=== PATIENT | female | born 1980 | race African-American/Black ===

== ENCOUNTER 2024-08-26 23:36 | Inpatient (IN) | payer OTHER, MEDICAID ==
[~2024-08-26] VITALS: Ht 165.1 cm; Wt 83.9 kg
[2024-08-27] MEDS: TETANUS, DIPHTHERIA, PERTUSSIS VAC/PF 0.5ML (>10YR OLD) IM ONE (00:17)
[2024-08-27] MEDS: MORPHINE SULFATE 4 MG/ML INJ (FOR IV/IM USE) IV ONE ×2 (00:18→02:06)
[2024-08-27] MEDS: SODIUM CHLORIDE 0.9% 1,000 ML IV ONE (00:19)
[2024-08-27] MEDS: CEFAZOLIN 1000MG PREMIX 50 ML IV ONE (00:21)
[2024-08-27 00:27] LABS: BASOPHILS % 0.9 % (0.0-2.0); EOSINOPHILS % 0.9 % (0.0-5.0); HEMATOCRIT. 35.5 % (36.0-48.0); HEMOGLOBIN. 11.9 g/dL (12.0-16.0); LYMPHOCYTES % 23.5 % (20.0-50.0); MEAN CORPUSCULAR HGB CONC 33.6 g/dL (31.0-37.0); MEAN CORPUSCULAR VOLUME 83.6 fL (81.0-99.0); MEAN PLATELET VOLUME 9.1 fl (7.4-10.4); MONOCYTES % 7.8 % (2.0-8.0); NEUTROPHILS % 66.9 % (40.0-76.0); PLATELET 312 x1000/uL (130-400); RED BLOOD CELL COUNT 4.25 mill/uL (4.2-5.4); RED CELL DISTRIBUTION WIDTH 13.6 % (11.6-14.6); WHITE BLOOD COUNT 10.2 x1000/uL (4.5-11.0)
[2024-08-27 00:41] LABS: CARBON DIOXIDE 31 mEq/L (21-32); CHLORIDE 105 mEq/L (98-107); POTASSIUM 3.4 mEq/L (3.5-5.1); SODIUM 143 mEq/L (136-145)
[2024-08-27 00:42] LABS: CALCIUM 8.9 mg/dL (8.7-10.4)
[2024-08-27 00:46] LABS: CREATININE 0.9 mg/dL (0.6-1.0); GLUCOSE 91 mg/dL (70-105)
[2024-08-27 00:47] LABS: UREA NITROGEN BLOOD 16 mg/dL (9-23)
[2024-08-27 01:35] LABS: HCG SCREEN NEGATIVE
[2024-08-27 01:40] LABS: PARTIAL THROMBOPLASTIN TIME 24.4 sec (23.4-31.0); PROTHROMBIN TIME 10.7 sec (9.6-11.0)
[2024-08-27] MEDS: POTASSIUM CHLORIDE 20MEQ/PACKET PO NR (01:59)
[2024-08-27] MEDS: IOHEXOL-350 100 ML BOTTLE ONE (02:12)
[2024-08-27] MEDS: BACITRACIN 14GM TUBE TOP NR (04:23)
[2024-08-27 06:00] VITALS: BP 142/69; PULSE 80; RESP 20; TEMP 36; O2SAT 99
[2024-08-27 08:00] VITALS: BP 113/70; PULSE 83; RESP 19; TEMP 36.1; O2SAT 98
[2024-08-27 12:00] VITALS: BP 127/84; PULSE 69; RESP 19; TEMP 36.1; O2SAT 95
[2024-08-27] MEDS: IBUPROFEN 400MG TABLET PO PRN (12:53)
[2024-08-27 16:00] VITALS: BP 130/80; PULSE 81; RESP 19; TEMP 36.1; O2SAT 95
[2024-08-27 20:00] VITALS: BP 130/98; PULSE 71; RESP 18; TEMP 36.3; TEMP 36.4; O2SAT 98
[2024-08-27] MEDS ORDERED: MAGNESIUM/ALUMINUM HYDROXIDE/SIMETHICONE 30ML UDC PO PRN (20:45)
[2024-08-27] MEDS ORDERED: CLONIDINE 0.1MG TABLET PO PRN (20:45)
[2024-08-27] MEDS ORDERED: DOCUSATE SODIUM 100MG CAPSULE PO PRN (20:45)
[2024-08-27] MEDS ORDERED: IPRATROPIUM/ALBUTEROL 0.5-3(2.5)MG/3ML NEB HHN PRN (20:45)
[2024-08-27] MEDS ORDERED: POTASSIUM CHLORIDE 20MEQ TABLET SR PO PRN (20:45)
[2024-08-27] MEDS ORDERED: ONDANSETRON HCL 4MG/2ML INJ IV PRN (20:45)
[2024-08-27] MEDS ORDERED: ACETAMINOPHEN 325MG TABLET PO PRN (20:45)
[2024-08-27] MEDS: ENOXAPARIN 40MG/0.4ML SYR SUBCUT SCH (21:00)
[2024-08-27 21:35] LABS: BASOPHILS % 0.8 % (0.0-2.0); EOSINOPHILS % 1.6 % (0.0-5.0); HEMATOCRIT. 33.3 % (36.0-48.0); HEMOGLOBIN. 11.1 g/dL (12.0-16.0); LYMPHOCYTES % 37.7 % (20.0-50.0); MEAN CORPUSCULAR HEMOGLOBIN 28.1 pg (28.0-32.0); MEAN CORPUSCULAR HGB CONC 33.4 g/dL (31.0-37.0); MEAN PLATELET VOLUME 8.9 fl (7.4-10.4); MONOCYTES % 9.1 % (2.0-8.0); NEUTROPHILS % 50.8 % (40.0-76.0); PLATELET 274 x1000/uL (130-400); RED BLOOD CELL COUNT 3.96 mill/uL (4.2-5.4); RED CELL DISTRIBUTION WIDTH 13.4 % (11.6-14.6); WHITE BLOOD COUNT 8.4 x1000/uL (4.5-11.0)
[2024-08-27 21:40] LABS: CARBON DIOXIDE 30 mEq/L (21-32); CHLORIDE 105 mEq/L (98-107); POTASSIUM 3.6 mEq/L (3.5-5.1); SODIUM 141 mEq/L (136-145)
[2024-08-27 21:41] LABS: CALCIUM 8.7 mg/dL (8.7-10.4)
[2024-08-27 21:46] LABS: CREATININE 0.6 mg/dL (0.6-1.0); GLUCOSE 96 mg/dL (70-105); UREA NITROGEN BLOOD 9 mg/dL (9-23)
[2024-08-28] MEDS: HYDROCODONE/ACETAMINOPHEN 5/325MG TABLET PO PRN (03:27)
[2024-08-28 08:00] VITALS: BP 117/87; PULSE 66; RESP 18; TEMP 36.1; O2SAT 98
[2024-08-28 12:00] VITALS: BP 115/67; PULSE 75; RESP 19; TEMP 36.3; O2SAT 97
[2024-08-28 16:00] VITALS: BP 108/69; PULSE 72; RESP 18; TEMP 36.3; O2SAT 97
[2024-08-28 16:03] LABS: EOSINOPHILS % 1.8 % (0.0-5.0); HEMATOCRIT. 35.2 % (36.0-48.0); HEMOGLOBIN. 11.7 g/dL (12.0-16.0); LYMPHOCYTES % 30.2 % (20.0-50.0); MEAN CORPUSCULAR HEMOGLOBIN 27.9 pg (28.0-32.0); MEAN CORPUSCULAR HGB CONC 33.3 g/dL (31.0-37.0); MEAN CORPUSCULAR VOLUME 83.9 fL (81.0-99.0); MEAN PLATELET VOLUME 8.8 fl (7.4-10.4); MONOCYTES % 7.6 % (2.0-8.0); NEUTROPHILS % 59.4 % (40.0-76.0); PLATELET 274 x1000/uL (130-400); RED CELL DISTRIBUTION WIDTH 13.7 % (11.6-14.6); WHITE BLOOD COUNT 7.8 x1000/uL (4.5-11.0)
[2024-08-28 16:15] LABS: CHLORIDE 107 mEq/L (98-107); SODIUM 142 mEq/L (136-145)
[2024-08-28 16:16] LABS: CARBON DIOXIDE 31 mEq/L (21-32)
[2024-08-28 16:17] LABS: CALCIUM 9.2 mg/dL (8.7-10.4)
[2024-08-28 16:21] LABS: CREATININE 0.6 mg/dL (0.6-1.0); GLUCOSE 100 mg/dL (70-105); UREA NITROGEN BLOOD 7 mg/dL (9-23)
[2024-08-28 16:23] LABS: ALANINE AMINOTRANSFERASE 7 IU/L (10-49); ASPARTATE AMINOTRANSFERASE 18 IU/L (<34); BILIRUBIN DIRECT 0.1 mg/dL (<=3.0)
[2024-08-28 16:24] LABS: BILIRUBIN TOTAL 0.5 mg/dL (0.1-1.0); PHOSPHORUS 2.7 mg/dL (2.5-4.9); PROTEIN TOTAL 6.7 g/dL (6.0-8.3)
[2024-08-28 20:00] VITALS: BP 117/71; PULSE 80; RESP 20; TEMP 37; O2SAT 99
[2024-08-29] MEDS ORDERED: NALOXONE HCL 0.4MG/ML VIAL IV PRN (01:15)
[2024-08-29 04:00] VITALS: BP 129/70; PULSE 68; RESP 17; TEMP 36.3; O2SAT 98
[2024-08-29 06:08] LABS: EOSINOPHILS % 1.7 % (0.0-5.0); HEMATOCRIT. 36.2 % (36.0-48.0); HEMOGLOBIN. 12.1 g/dL (12.0-16.0); LYMPHOCYTES % 39.3 % (20.0-50.0); MEAN CORPUSCULAR HEMOGLOBIN 27.9 pg (28.0-32.0); MEAN CORPUSCULAR HGB CONC 33.5 g/dL (31.0-37.0); MEAN CORPUSCULAR VOLUME 83.4 fL (81.0-99.0); MEAN PLATELET VOLUME 9.2 fl (7.4-10.4); MONOCYTES % 7.7 % (2.0-8.0); NEUTROPHILS % 50.3 % (40.0-76.0); PLATELET 291 x1000/uL (130-400); RED BLOOD CELL COUNT 4.34 mill/uL (4.2-5.4); RED CELL DISTRIBUTION WIDTH 13.4 % (11.6-14.6); WHITE BLOOD COUNT 7.7 x1000/uL (4.5-11.0)
[2024-08-29 06:39] LABS: CHLORIDE 108 mEq/L (98-107); POTASSIUM 3.9 mEq/L (3.5-5.1); SODIUM 141 mEq/L (136-145)
[2024-08-29 06:41] LABS: CARBON DIOXIDE 27 mEq/L (21-32)
[2024-08-29 06:46] LABS: CREATININE 0.6 mg/dL (0.6-1.0); GLUCOSE 102 mg/dL (70-105)
[2024-08-29 06:47] LABS: ALANINE AMINOTRANSFERASE < 7 IU/L (10-49); UREA NITROGEN BLOOD 9 mg/dL (9-23)
[2024-08-29 06:48] LABS: ALBUMIN 3.9 g/dL (3.2-4.8); ASPARTATE AMINOTRANSFERASE 17 IU/L (<34); BILIRUBIN DIRECT 0.1 mg/dL (<=3.0)
[2024-08-29 06:49] LABS: BILIRUBIN TOTAL 0.3 mg/dL (0.1-1.0); PROTEIN TOTAL 6.5 g/dL (6.0-8.3)
[2024-08-29] MEDS ORDERED: LIDOCAINE HCL 1% 10 MG/ML 10ML VIAL ONE (09:51)
[2024-08-29 12:00] VITALS: BP 122/76; PULSE 68; RESP 19; TEMP 36.6; O2SAT 100
[2024-08-29 16:00] VITALS: BP 135/80; PULSE 76; RESP 18; TEMP 36.6; O2SAT 98
[2024-08-29] MEDS: VANCOMYCIN 1G PREMIX 200 ML IV SCH (16:49)
[2024-08-29 20:00] VITALS: BP 120/70; PULSE 86; RESP 18; TEMP 36.7; O2SAT 99
[2024-08-29] MEDS: PRAZOSIN HCL 1MG CAPSULE PO SCH (21:31)
[2024-08-30] MEDS: VANCOMYCIN 1GM/200ML PMX (BAXTER) IV SCH (00:51)
[2024-08-30 04:00] VITALS: BP 134/76; PULSE 88; RESP 16; TEMP 36.6; O2SAT 100
[2024-08-30 08:00] VITALS: BP 109/72; PULSE 84; RESP 18; TEMP 34.7; O2SAT 98
[2024-08-30] MEDS: ARIPIPRAZOLE 5MG TABLET PO SCH (08:36)
[2024-08-30 08:38] LABS: CLARITY URINE CLEAR (CLEAR); COLOR URINE YELLOW (YELLOW); GLUCOSE URINE NEGATIVE (NEGATIVE); KETONES URINE NEGATIVE (NEGATIVE); LEUKOCYTE ESTERASE URINE NEGATIVE (NEGATIVE); NITRITE URINE NEGATIVE (NEGATIVE); OCCULT BLOOD URINE NEGATIVE (NEGATIVE); PROTEIN URINE NEGATIVE (NEGATIVE); SPECIFIC GRAVITY URINE 1.012 (1.005-1.030)
[2024-08-30] MEDS ORDERED: GUAIFENESIN/DM 600MG/30MG ER TAB 12HR PO PRN (09:00)
[2024-08-30] MEDS ORDERED: VANCOMYCIN 1G PREMIX 200 ML IV SCH (18:00)
[2024-09-01 04:07] LABS: CHLAMYDIA TRACHOMATIS NAA Negative (Negative); NEISSERIA GONORRHOEAE NAA Negative (Negative)
== END 2024-08-30 13:17 | disposition left against medical advice (07) | DRG 351 ==
LOC: ER 23:36 → 6EST 08-27 03:33 → ENRESERV 08-27 04:29
PROVIDERS: ADMIT Family Medicine Adult Medicine; ATTEND Family Medicine Adult Medicine
PROC: 02HV33Z Insertion of Infusion Device into Superior Vena Cava, Percutaneous Approach (ICD-10-PCS; principal; 2024-08-29)
PROC: B548ZZA Ultrasonography of Superior Vena Cava, Guidance (ICD-10-PCS; 2024-08-29)
PROC: B5181ZA Fluoroscopy of Superior Vena Cava using Low Osmolar Contrast, Guidance (ICD-10-PCS; 2024-08-29)
DX: S81.832A Puncture wound without foreign body, left lower leg, initial encounter (principal); F25.1 Schizoaffective disorder, depressive type; F43.10 Post-traumatic stress disorder, unspecified; Z53.29 Procedure and treatment not carried out because of patient's decision for other reasons; F43.0 Acute stress reaction; W34.09XA Accidental discharge from other specified firearms, initial encounter; Y93.89 Activity, other specified; Y92.89 Other specified places as the place of occurrence of the external cause; Y99.8 Other external cause status
CPT/HCPCS: 36415; 36573; 73590; 73610; 73630; 73706; 80048; 80076; 81003; 83735; 84100; 84703; 85025; 86592; 86850; 86900; 87491; 87591; 90715; 93005; 93970; 99291; A6449; C1725; C1769; J0690; J1650; J2003; J2270; J3370; J7030; Q9967